=== PATIENT | male | born 1960 | race Hispanic/Latino ===

== ENCOUNTER 2020-11-07 09:00 | Observation (INO) | payer OTHER ==
[~2020-11-07] VITALS: Ht 175.3 cm; Wt 99.8 kg
[2020-11-07 12:25] LABS: BASOPHILS % (AUTO) 0.5 % (0.0-5.0); EOSINOPHILS % (AUTO) 2.3 % (0.0-8.0); HEMATOCRIT 49.1 % (42-54); LYMPHOCYTES % (AUTO) 44.6 % (21.0-51.0); MEAN CORPUSCULAR HEMOGLOBIN 27.3 pg (27.0-33.0); MEAN CORPUSCULAR HGB CONC 32.4 g/dL (32.0-36.0); MEAN CORPUSCULAR VOLUME 84.2 fL (79-99); NEUTROPHILS % (AUTO) 45.4 % (40.0-77.0); PLATELET COUNT (AUTO) 196 K/uL (130-400); RED BLOOD CELL COUNT(AUTO) 5.83 MIL/uL (4.50-6.20); RED CELL DISTRIBUTION WIDTH 15.5 % (11.0-15.5); WHITE BLOOD COUNT (AUTO) 6.4 K/uL (4.8-10.8)
[2020-11-07 12:36] LABS: POTASSIUM 4.9 mmol/L (3.5-5.1)
[2020-11-07 12:39] LABS: INR 1.03 (0.85-1.15); PROTHROMBIN TIME 11.2 SEC (9.6-11.6)
[2020-11-07 13:19] LABS: APPEARANCE,URINE CLEAR (CLEAR); BILIRUBIN,URINE NEGATIVE (NEGATIVE); COLOR,URINE YELLOW (YELLOW); GLUCOSE, URINE (UA) NEGATIVE (NEGATIVE); KETONES,URINE NEGATIVE (NEGATIVE); LEUKOCYTE ESTERASE ,URINE NEGATIVE (NEGATIVE); NITRATE,URINE NEGATIVE (NEGATIVE); OCCULT BLOOD,URINE NEGATIVE (NEGATIVE); PH,URINE 5.5 (5.0-8.0); PROTEIN,URINE NEGATIVE (NEGATIVE); UROBILINOGEN,URINE 0.2 mg/dL (0.2-1.0)
[2020-11-07 18:13] VITALS: BP 130/79
[2020-11-07] MEDS ORDERED: BUPR300T53 PO (18:16)
[2020-11-07] MEDS ORDERED: TADA20TA PO (18:16)
[2020-11-08] VITALS (22 sets, daily range): BP systolic 107–140; BP diastolic 70–96
[2020-11-08] MEDS ORDERED: CEFAZOLIN SODIUM 1 GM VIAL ONE ×4 (11:46→15:36)
[2020-11-08] MEDS ORDERED: LACTATED RINGERS 1000ML 1,000 ML IV ONE (11:47)
[2020-11-08] MEDS ORDERED: LIDOCAINE PF 100MG/5ML (2%) SYRINGE 5ML ONE (15:30)
[2020-11-08] MEDS ORDERED: PROPOFOL 10 MG/ML 20ML VIAL IV ONE (15:31)
[2020-11-08] MEDS ORDERED: ROCURONIUM 10MG/1ML SYR 10 MG/ML ML ONE (15:31)
[2020-11-08] MEDS ORDERED: MIDAZOLAM HCL 1 MG/ML 2ML VIAL ONE (15:31)
[2020-11-08] MEDS ORDERED: FENTANYL CITRATE PF 50 MCG/1 ML 5ML AMP IV ONE (15:32)
[2020-11-08] MEDS ORDERED: TRANEXAMIC ACID 1000MG/10ML ONE ×2 (15:35→18:24)
[2020-11-08] MEDS ORDERED: ONDANSETRON 4MG INJ ONE (15:39)
[2020-11-08] MEDS ORDERED: KETAMINE 50MG/ML SYRINGE 50 MG/ML DISP.SYRIN IV ONE (15:43)
[2020-11-08] MEDS ORDERED: ROPIVACAINE 0.5% 5MG/ML 30ML IJ ONE (15:43)
[2020-11-08] MEDS ORDERED: CEFAZOLIN SODIUM 1 GM VIAL IVP ONE ×2 (16:28)
[2020-11-08] MEDS ORDERED: NEOSTIGMINE 5MG/5ML SYR IV ONE (17:59)
[2020-11-08] MEDS ORDERED: KETOROLAC 30MG VIAL (30MG/ML) ONE (17:59)
[2020-11-08] MEDS ORDERED: GLYCOPYRROLATE 1 MG/5 ML SYRINGE ONE (17:59)
[2020-11-08] MEDS ORDERED: CALCIUM CARB 500MG PO PRN (18:30)
[2020-11-08] MEDS ORDERED: LIDOCAINE HCL-MPF 1% 2ML VIAL IV PRN (18:30)
[2020-11-08] MEDS ORDERED: 0.9%NACL 1000ML 1,000 ML IV SCH (18:30)
[2020-11-08] MEDS ORDERED: FERROUS FUMARATE 324 MG TABLET PO PRN (18:30)
[2020-11-08] MEDS ORDERED: DiphenhydrAMINE HCL 50 MG/ML VIAL IVP PRN (18:30)
[2020-11-08] MEDS ORDERED: TRAMADOL HCL 50 MG TABLET PO PRN (18:30)
[2020-11-08] MEDS ORDERED: TEMAZEPAM 15 MG CAPSULE PO PRN (18:30)
[2020-11-08] MEDS ORDERED: KCL 20 MEQ ERTAB PO PRN (18:30)
[2020-11-08] MEDS ORDERED: POTASSIUM CHLORIDE 10% ELIXIR 20 MEQ/15 ML UDCUP PO PRN (18:30)
[2020-11-08] MEDS ORDERED: KETOROLAC 15MG/ML VIAL (15MG/ML) IV PRN (18:30)
[2020-11-08] MEDS ORDERED: ONDANSETRON 4MG INJ IVP PRN (18:30)
[2020-11-08] MEDS ORDERED: POTASSIUM CHLORIDE 20MEQ/100ML 100 ML IV PRN (18:30)
[2020-11-08] MEDS ORDERED: MEPERIDINE-PF 25 MG/ML SYG ONE ×2 (18:52→19:02)
[2020-11-08] MEDS: FAMOTIDINE 20MG TAB PO SCH (20:11)
[2020-11-08] MEDS: PREGABALIN 25 MG CAP PO SCH (20:11)
[2020-11-08] MEDS: OXYCODONE HCL 5 MG TAB PO PRN (20:12)
[2020-11-08] MEDS: CELECOXIB 200 MG CAP PO SCH (20:13)
[2020-11-08] MEDS: ACETAMINOPHEN 500 MG TABLET PO SCH (20:23)
[2020-11-09 00:09] VITALS: BP 124/81
[2020-11-09] MEDS: CEFAZOLIN SODIUM 1 GM VIAL IVP SCH ×2 (01:04→08:22)
[2020-11-09] MEDS: ACETAMINOPHEN 500 MG TABLET PO SCH ×3 (02:30→17:01)
[2020-11-09 04:00] VITALS: BP 122/82
[2020-11-09] MEDS: OXYCODONE HCL 5 MG TAB PO PRN ×3 (04:28→12:50)
[2020-11-09 04:38] LABS: MEAN CORPUSCULAR HEMOGLOBIN 26.8 pg (27.0-33.0); MEAN CORPUSCULAR HGB CONC 32.2 g/dL (32.0-36.0); MEAN CORPUSCULAR VOLUME 83.3 fL (79-99); RED BLOOD CELL COUNT(AUTO) 5.52 MIL/uL (4.50-6.20); WHITE BLOOD COUNT (AUTO) 11.4 K/uL (4.8-10.8)
[2020-11-09 04:54] LABS: CREATININE 0.9 mg/dL (0.5-1.5); POTASSIUM 5.1 mmol/L (3.5-5.1)
[2020-11-09 07:01] VITALS: BP 107/68
[2020-11-09] MEDS: TAMSULOSIN HCL 0.4 MG CAP.ER.24H PO SCH (08:19)
[2020-11-09] MEDS: PREGABALIN 25 MG CAP PO SCH ×2 (08:19→20:40)
[2020-11-09] MEDS: CELECOXIB 200 MG CAP PO SCH ×2 (08:20→20:40)
[2020-11-09] MEDS: POLYETHYLENE GLYCOL 3350 17 GM POWD.PACK PO SCH (08:20)
[2020-11-09] MEDS: FAMOTIDINE 20MG TAB PO SCH ×2 (08:20→20:40)
[2020-11-09 11:31] VITALS: BP 95/57
[2020-11-09 15:20] VITALS: BP 120/69
[2020-11-09 19:00] VITALS: BP 131/77
[2020-11-09] MEDS ORDERED: MAGNESIUM CITRATE 296 ML SOLUTION PO ONE (21:00)
[2020-11-10] VITALS (7 sets, daily range): BP systolic 124–143; BP diastolic 60–80
[2020-11-10] MEDS: OXYCODONE HCL 5 MG TAB PO PRN ×2 (00:44→12:44)
[2020-11-10] MEDS: ACETAMINOPHEN 500 MG TABLET PO SCH ×3 (02:30→18:30)
[2020-11-10] MEDS ORDERED: BUPROPION HCL 150 MG TABLET.SA PO SCH (09:00)
[2020-11-10] MEDS ORDERED: TADALAFIL 20 MG PO SCH (09:00)
[2020-11-10] MEDS: TAMSULOSIN HCL 0.4 MG CAP.ER.24H PO SCH (09:14)
[2020-11-10] MEDS: CELECOXIB 200 MG CAP PO SCH (09:14)
[2020-11-10] MEDS: PREGABALIN 25 MG CAP PO SCH (09:14)
[2020-11-10] MEDS: POLYETHYLENE GLYCOL 3350 17 GM POWD.PACK PO SCH (09:14)
[2020-11-10] MEDS: FAMOTIDINE 20MG TAB PO SCH (09:14)
[2020-11-10] MEDS ORDERED: APIXABAN 2.5 MG TABLET PO ONE (14:52)
[2020-11-10] MEDS ORDERED: APIXABAN 2.5 MG TABLET PO SCH (15:00)
[2020-11-10] MEDS ORDERED: APIX2.5T PO (15:02)
[2020-11-10] MEDS ORDERED: HYDR-4060 PO (15:02)
[2020-11-11] MEDS ORDERED: BISACODYL 10 MG SUPP.RECT RC PRN (18:30)
== END 2020-11-10 20:25 | disposition home health service (06) ==
LOC: EDSTATUS 11-08 09:00 → DAHIP 11-08 09:59 → 3AH 11-08 19:17
PROVIDERS: ADMIT Orthopaedic Surgery; ATTEND Orthopaedic Surgery
DX: M17.11 Unilateral primary osteoarthritis, right knee (principal); Z20.822 Contact with and (suspected) exposure to COVID-19; G47.33 Obstructive sleep apnea (adult) (pediatric); K80.80 Other cholelithiasis without obstruction; K76.0 Fatty (change of) liver, not elsewhere classified; N40.0 Benign prostatic hyperplasia without lower urinary tract symptoms; M25.561 Pain in right knee; G89.29 Other chronic pain; Z90.49 Acquired absence of other specified parts of digestive tract; Z79.899 Other long term (current) drug therapy; Z98.890 Other specified postprocedural states; Z87.891 Personal history of nicotine dependence; Z86.19 Personal history of other infectious and parasitic diseases
CPT/HCPCS: 27447; 36415 ×2; 64447; 76942; 80048 ×2; 81003; 85025; 85027; 85610; 87088; 87635; 87641; 88305; 88311; 96361 ×2; 96374; 96375; 96376; 97039 ×4; 97116 ×4; 97161; 97530 ×4; A4215; A4221; A4222; A4223; A4649 ×3; A4663; A4930; A9272; C1776; G0378 ×53; G0379; J0690 ×8; J1885 ×2; J2001; J2175 ×2; J2250; J2405; J2704; J2710; J2795; J3010; J3490 ×4; J7120 ×2